=== PATIENT | female | born 1965 | race American Indian/Alaskan Native ===

== ENCOUNTER 2017-04-15 09:33 | Emergency (ER) | payer MEDICAID ==
[2017-04-15 09:46] VITALS: BP 144/94; PULSE 86; RESP 16; TEMP 97.9; O2SAT 100
--- NOTE | 2017-04-15 10:04 | C.PDOC ---
History Of Present Illness 51 yo female, presntes with rash to "Generalized body, and face", which resolved prior to er arrival. as per pt, noted rash last night, took benadryl at home, whihc resolved rash. pt states minimal to her face at this time. no known allergens, new lotions creams detergents. pt states no fevers, cp, sob, n/ v/d, or other complaints. rash was purititc. Time Seen by Provider: 04/15/17 09:57 Chief Complaint (Nursing): Allergic Reaction Past Medical History Reviewed: Historical Data, Nursing Documentation, Vital Signs Vital Signs: Last Vital Signs Temp 97.9 F 04/15/17 09:42 Pulse 86 04/15/17 09:42 Resp 16 04/15/17 09:42 BP 144/94 H 04/15/17 09:42 Pulse Ox 100 04/15/17 09:42 - Medical History PMH: Anxiety, Arthritis, Back Problems (CERVICAL/BACK CHRONIC), Depression, HTN Denies: Diabetes, Hepatitis, HIV, Seizures, Sexually Transmitted Disease Surgical History: Back Surgery - [facility] Procedures INJECT/INFUSE NEC (03/21/07) Family History: States: Unknown Family Hx, [place] (Mother and father of MIs at 60 and 70 years old respectively ) - Social History Hx Tobacco Use: Yes Hx Alcohol Use: Yes Hx Substance Use: No - Immunization History Hx Tetanus Toxoid Vaccination: No Hx Influenza Vaccination: No Hx Pneumococcal Vaccination: No Review Of Systems Except As Marked, All Systems Reviewed And Found Negative. Skin: Positive for: Rash Physical Exam - Physical Exam Appears: Well, No Acute Distress Skin: Normal Color, Warm, Dry Head: Other (minimal maculopapular rash to face) Eye(s): bilateral: Normal Inspection, PERRL, EOMI Nose: Normal Throat: Normal Neck: Normal Cardiovascular: Rhythm Regular Respiratory: Normal Breath Sounds Gastrointestinal/Abdominal: Normal Exam Back: Normal Inspection Extremity: Normal ROM ED Course And Treatment O2 Sat by Pulse Oximetry: 100 Medical Decision Making Medical Decision Making: rash now resolving, will advise supportive tx and advise outpt f/u Disposition - Disposition Disposition: HOME/ ROUTINE Disposition Time: 10:04 Condition: STABLE Additional Instructions: please follow up with specialist. return to er with worsening symptoms or concerns. Prescriptions: DiphenhydrAMINE [Benadryl] 25 mg PO Q4 PRN #20 cap PRN Reason: Itching / Pruritus Prednisone 50 mg PO DAILY #5 tablet Instructions: Acute Rash (ED), Urticaria (ED) Forms: [facility] (Mozambican) - Clinical Impression Clinical Impression: Rash
== END 2017-04-15 10:20 | disposition home or self-care (01) ==
LOC: C.ER 09:33
DX: R21 Rash and other nonspecific skin eruption (principal)

== ENCOUNTER 2018-04-05 18:03 | Emergency (ER) | payer MEDICAID, OTHER ==
[2018-04-05 18:26] VITALS: BP 159/100; PULSE 90; RESP 18; TEMP 98.3; O2SAT 99
[2018-04-05] MEDS ORDERED: Dexamethasone 4 mg/1 ml IM STA (19:19)
[2018-04-05] MEDS ORDERED: Lidocaine 5% Patch TD STA ×2 (19:19→19:28)
[2018-04-05] MEDS ORDERED: Lidocaine 5% Patch TD ONE ×2 (19:25→19:32)
--- NOTE | 2018-04-05 19:31 | C.PDOC ---
History Of Present Illness 52 y/o female with Hx htn, presents to ED with c/o right lower back pain radiating to leg for 3 days. Patient has history of chronic back pain, saw pain management, and had a spinal injection 3 months ago with relief. Patient has history of herniated discs, pinched nerves and sciatica seen in last MRI in 2017. Patient took Tylenol for pain today with no improvement. Denies dyuria, urinary frequency, bowel/bladder incontinence, abdominal pain, change in sensation or weakness. Time Seen by Provider: 04/05/18 19:13 Chief Complaint (Nursing): Upper Extremity Problem/Injury History Per: Patient History/Exam Limitations: no limitations Onset/Duration Of Symptoms: Days Current Symptoms Are (Timing): Still Present Quality: "Pain" Past Medical History Reviewed: Historical Data, Nursing Documentation, Vital Signs Vital Signs: Last Vital Signs Temp 98.3 F 04/05/18 18:20 Pulse 90 04/05/18 18:20 Resp 18 04/05/18 18:20 BP 159/100 H 04/05/18 18:20 Pulse Ox 99 04/05/18 20:00 - Medical History PMH: Anxiety, Arthritis, Back Problems (CERVICAL/BACK CHRONIC), Depression, HTN Surgical History: Back Surgery - [facility] Procedures INJECT/INFUSE NEC (03/21/07) Family History: States: [place] (Mother and father of MIs at 60 and 70 years old respectively ) - Social History Hx Tobacco Use: Yes Hx Alcohol Use: Yes Hx Substance Use: No - Immunization History Hx Tetanus Toxoid Vaccination: No Hx Influenza Vaccination: No Hx Pneumococcal Vaccination: No Review Of Systems Except As Marked, All Systems Reviewed And Found Negative. Gastrointestinal: Negative for: Nausea, Vomiting, Abdominal Pain Genitourinary: Negative for: Dysuria, Hematuria Musculoskeletal: Positive for: Back Pain, Leg Pain Skin: Negative for: Rash Neurological: Negative for: Weakness, Numbness Physical Exam - Physical Exam Appears: Non-toxic, No Acute Distress Skin: Warm, Dry, No Rash Head: Atraumatic, Normacephalic Eye(s): bilateral: Normal Inspection, EOMI Nose: Normal Oral Mucosa: Moist Neck: Normal ROM, Supple Chest: Symmetrical Cardiovascular: Rhythm Regular Respiratory: Normal Breath Sounds, No Rales, No Rhonchi, No Wheezing Gastrointestinal/Abdominal: Soft, No Tenderness, No Guarding, No Rebound Back: No CVA Tenderness, No Vertebral Tenderness, No Muscle Spasm, Other (right paralumbar and buttock tenderness) Extremity: Normal ROM Neurological/Psych: Oriented x3, Normal Speech, Normal Motor, Normal Sensation ED Course And Treatment O2 Sat by Pulse Oximetry: 99 (RA) Pulse Ox Interpretation: Normal Progress Note: Naproxen and and lidoderm patch ordered. PT is driving home. On reassessment, patient is resting comfortably, with improvement of back pain. Patient remains afebrile, with no bony tenderness, extremity numbness or weakness, or abdominal pain. Discussed with pt concern for HTN, discussed compliance and risks of untreated htn. Patient was advised to follow up with physician/clinic in 1-2 days. Disposition - Disposition Disposition: HOME/ ROUTINE Disposition Time: 19:29 Condition: STABLE Additional Instructions: Follow up with your primary medical doctor or clinic in 2-5 days for further evaluation. Take medications as prescribed. Return to the emergency department at any time if symptoms persist or worsen. Prescriptions: Cyclobenzaprine [Cyclobenzaprine HCl] 10 mg PO BID #20 tab Naproxen [Naprosyn] 1 tab PO BID PRN #20 tab PRN Reason: Pain Instructions: Sciatica (DC) Forms: [facility] (Maori), Work Excuse - Clinical Impression Clinical Impression: Sciatica - PA / WRAPPER CASER / Resident Statement MD/DO has reviewed & agrees with the documentation as recorded. - Scribe Statement The provider has reviewed the documentation as recorded by the Artem Mello All medical record entries made by the Artem were at my direction and personally dictated by me. I have reviewed the chart and agree that the record accurately reflects my personal performance of the history, physical exam, medical decision making, and the department course for this patient. I have also personally directed, reviewed, and agree with the discharge instructions and disposition.
== END 2018-04-05 19:43 | disposition home or self-care (01) ==
LOC: C.ER 18:03
DX: M54.31 Sciatica, right side (principal)
CPT/HCPCS: 96372; 99284; J1100; J1885

== ENCOUNTER 2018-07-07 16:54 | Emergency (ER) | payer MEDICAID, OTHER ==
[2018-07-07 16:54] VITALS: BMI 36.6
[2018-07-07] MEDS ORDERED: Sodium Chloride 0.9% 1,000 ML IV ONE (19:16)
--- NOTE | 2018-07-07 19:16 | C.PDOC ---
History Of Present Illness Patient presents to the ER with a complaint of a sharp, stabbing, cramping RLQ abdominal pain for the past week. Denies dysuria, fever, or chills. Time Seen by Provider: 07/07/18 19:15 Chief Complaint (Nursing): Abdominal Pain History Per: Patient History/Exam Limitations: no limitations Onset/Duration Of Symptoms: Days (7) Current Symptoms Are (Timing): Still Present Severity: Moderate Pain Scale Rating Of: 4 Location Of Pain/Discomfort: RLQ Radiation Of Pain To:: None Quality Of Discomfort: Sharp, Cramping, Stabbing Associated Symptoms: denies: Fever, Chills, Other (Dysuria) Exacerbating Factors: None Alleviating Factors: None Recent travel outside of the [place]: No Abnormal Vaginal Bleeding: No Past Medical History Reviewed: Historical Data, Nursing Documentation, Vital Signs Vital Signs: Last Vital Signs Temp 98.1 F 07/07/18 17:27 Pulse 93 H 07/07/18 17:27 Resp 20 07/07/18 17:27 BP 170/105 H 07/07/18 17:27 Pulse Ox 95 07/07/18 17:27 - Medical History PMH: Anxiety, Arthritis, Back Problems (CERVICAL/BACK CHRONIC), Depression, HTN Denies: Diabetes, Hepatitis, HIV, Seizures, Sexually Transmitted Disease Surgical History: Back Surgery - [facility] Procedures INJECT/INFUSE NEC (03/21/07) Family History: States: [place] (Mother and father of MIs at 60 and 70 years old respectively ) - Social History Hx Tobacco Use: Yes Hx Alcohol Use: Yes Hx Substance Use: No - Immunization History Hx Tetanus Toxoid Vaccination: No Hx Influenza Vaccination: No Hx Pneumococcal Vaccination: No Review Of Systems Constitutional: Negative for: Fever, Chills Cardiovascular: Negative for: Chest Pain, Palpitations Respiratory: Negative for: Cough, Shortness of Breath Gastrointestinal: Positive for: Abdominal Pain Genitourinary: Negative for: Dysuria Neurological: Negative for: Weakness, Numbness Physical Exam - Physical Exam Appears: Non-toxic, Other (Morbidly obese) Skin: Warm, Dry Head: Normacephalic Eye(s): bilateral: Normal Inspection Oral Mucosa: Moist Neck: Trachea Midline, Supple Chest: Symmetrical, No Tenderness Cardiovascular: Rhythm Regular Respiratory: No Rales, No Rhonchi, No Wheezing Gastrointestinal/Abdominal: Soft, Tenderness (RLQ), No Guarding, No Rebound Back: No CVA Tenderness Neurological/Psych: Oriented x3 ED Course And Treatment - Laboratory Results Result Diagrams: 07/07/18 19:48 07/07/18 19:48 O2 Sat by Pulse Oximetry: 95 (room air) Pulse Ox Interpretation: Normal Progress Note: Blood work and urinalysis ordered. IV fluids administered. Reevaluation Time: 23:08 Reassessment Condition: Improved Disposition Counseled Patient/Family Regarding: Studies Performed, Diagnosis, Need For Followup - Disposition Referrals: Jackie Alonso MD [Medical Doctor] - Disposition: HOME/ ROUTINE Disposition Time: 19:16 Condition: FAIR Additional Instructions: Please return if symptoms recur Prescriptions: Dicyclomine [Dicyclomine HCl] 10 mg PO QID PRN #20 cap PRN Reason: abdominal cramps Instructions: Acute Abdomen (Belly Pain), Adult (DC) Forms: [facility] (Estonian) - Clinical Impression Clinical Impression: Abdominal pain - Scribe Statement The provider has reviewed the documentation as recorded by the Scribclaire Dill All medical record entries made by the Scribe were at my direction and personally dictated by me. I have reviewed the chart and agree that the record accurately reflects my personal performance of the history, physical exam, medical decision making, and the department course for this patient. I have also personally directed, reviewed, and agree with the discharge instructions and disposition.
[2018-07-07] MEDS ORDERED: Sodium Chloride 0.9% 1,000 ML ONE (19:27)
[2018-07-07 19:55] LABS: BASO # 0.1 K/uL (0.0-0.2); BASO % 0.8 % (0.0-2.0); EOS # 0.1 K/uL (0.0-0.7); LYMPH # 1.8 K/uL (1.0-4.3); MEAN CELL VOLUME 90.2 fL (81.0-99.0); MEAN CORPUSCULAR HEMOGLOBIN 30.9 pg (27.0-31.0); MEAN CORPUSCULAR HGB CONC 34.2 g/dL (33.0-37.0); MEAN PLATELET VOLUME 8.3 fL (7.2-11.7); MONO # 0.4 K/uL (0.0-0.8); MONO % 5.5 % (0.0-10.0); NEUT # 5.2 K/uL (1.8-7.0); NEUT % 68.7 % (50.0-75.0); NRBC % 0.1 % (0.0-2.0); RBC 4.53 Mil/uL (3.80-5.20); RED CELL DISTRIBUTION WIDTH 13.8 % (11.5-14.5); WHITE BLOOD COUNT 7.6 K/uL (4.8-10.8)
[2018-07-07 19:57] LABS: HCG,QUALITATIVE URINE NEGATIVE (NEGATIVE)
[2018-07-07 19:58] LABS: SQUAMOUS EPITHIAL 13 /hpf (0-5); URINE BILIRUBIN NEGATIVE (NEGATIVE); URINE CLARITY Clear (Clear); URINE COLOR Yellow (YELLOW); URINE GLUCOSE (UA) NORMAL (Normal); URINE LEUKOCYTE ESTERASE NEG Leu/uL (Negative); URINE PROTEIN NEGATIVE (NEGATIVE)
[2018-07-07 19:59] LABS: URINE BLOOD 1+ (NEGATIVE)
[2018-07-07 20:13] LABS: ALB/GLOB RATIO 1.1 (1.0-2.1); ALBUMIN 4.1 g/dL (3.5-5.0); BLOOD UREA NITROGEN 20 mg/dL (7-17); CALCIUM 9.2 mg/dl (8.6-10.4); GFR NON-AFRICAN AMERICAN > 60; LIPASE 38 U/L (23-300)
[2018-07-07 20:15] LABS: PROTHROMBIN TIME 10.7 SECONDS (9.7-12.2)
[2018-07-07 20:16] LABS: ALT/SGPT 29 U/L (9-52); AST/SGOT 29 U/L (14-36)
[2018-07-07] MEDS ORDERED: Iohexol 350mg/ml 100 ML ONE (21:19)
[2018-07-07 23:32] VITALS: BP 161/89; PULSE 86; RESP 16; TEMP 98.2; O2SAT 97
--- NOTE | 2018-07-08 11:02 | CT ---
Date of service: 07/07/2018 PROCEDURE: CT Abdomen and Pelvis with Oral contrast. HISTORY: Right lower quadrant abdominal pain. COMPARISON: None. TECHNIQUE: Contiguous axial images of the abdomen and pelvis performed following intravenous injection of approximately 100 cc Omnipaque 350 contrast material. Additional 2D sagittal and coronal reformats generated. Radiation dose: Total exam DLP = 1094.23 mGy-cm. This CT exam was performed using one or more of the following dose reduction techniques: Automated exposure control, adjustment of the mA and/or kV according to patient size, and/or use of iterative reconstruction technique. FINDINGS: LOWER THORAX: Unremarkable. LIVER: The liver is enlarged measuring nearly 22 cm in CC dimension. Mild diffuse fatty hepatic infiltration. No obvious hepatic masses, collections or calcifications. Portal and splenic veins are opacified. GALLBLADDER AND BILE DUCTS: Gallbladder physiologically distended. No evidence of intraluminal gallbladder calculi PANCREAS: Pancreas slightly atrophic and fatty replaced. SPLEEN: Spleen exhibits normal size and attenuation pattern without masses collections or calcifications. ADRENALS: No adrenal lesions. KIDNEYS AND URETERS: The kidneys demonstrate relatively symmetric nephrograms. There is a small nonobstructing calculus measuring 4.7 mm lower pole collecting system right kidney BLADDER: Urinary bladder is incompletely distended which may in part account for minimal wall thickening.. Correlation with urinalysis recommended. REPRODUCTIVE: Unremarkable as visualized APPENDIX: Normal retrocecal appendix. BOWEL: Evaluation of the bowel is somewhat limited due to the lack of oral contrast material. The stomach is incompletely distended which in part accounts for thick-walled appearance. Gastritis cannot be completely excluded. 1 or 2 loops of proximal-mid small bowel small bowel in the left mid to lower abdomen exhibit minimal distension however no evidence to suggest obstruction. Stool and air seen throughout the large bowel with no definitive mural wall thickening. PERITONEUM: Unremarkable. No fluid collection. No free air. Tiny fat containing umbilical hernia. LYMPH NODES: Unremarkable. No enlarged lymph nodes. VASCULATURE: Unremarkable. No aortic aneurysm. No aortic atherosclerotic calcification or mural plaque present. BONES: N minor degenerative spondylosis lower thoracic and lumbar spine. There are no acute compression fractures no retropulsed fragments. OTHER FINDINGS: None. IMPRESSION: Hepatomegaly with mild fatty hepatic infiltration. No evidence of acute appendicitis. Tiny nonobstructing calculus lower pole collecting system right kidney.
== END 2018-07-07 23:32 | disposition home or self-care (01) ==
LOC: C.ER 16:54
DX: R10.9 Unspecified abdominal pain (principal); I10 Essential (primary) hypertension; F41.9 Anxiety disorder, unspecified; F17.210 Nicotine dependence, cigarettes, uncomplicated
CPT/HCPCS: 74177; 80053; 81001; 83690; 84703; 85025; 85610; 85730; 99284; Q9967